=== PATIENT | female | born 1955 | race Caucasian/White ===

== ENCOUNTER 2017-03-21 19:30 | Outpatient (CLI) | payer OTHER | END 2017-03-21 19:31 | disposition home or self-care (01) | LOC: SLEEPLAB 19:30 | PROVIDERS: ATTEND Internal Medicine Critical Care Medicine | DX: G47.33 Obstructive sleep apnea (adult) (pediatric) (principal); E66.9 Obesity, unspecified | CPT/HCPCS: 95811 ==

== ENCOUNTER 2017-05-13 01:23 | Outpatient (CLI) | payer OTHER | END 2017-05-13 01:24 | disposition home or self-care (01) | LOC: BICRAD 01:23 | DX: M25.542 Pain in joints of left hand (principal); M25.541 Pain in joints of right hand ==

== ENCOUNTER 2018-03-17 08:28 | Outpatient (CLI) | payer OTHER ==
--- NOTE | 2018-03-17 10:35 | ULT ---
COMPLETE ABDOMINAL ULTRASOUND: History: Mid abdominal pain. Comparison: Exam is compared to prior 01-13-05, as well as comparison ultrasound 09-28-14. FINDINGS: There is diffuse increased echogenicity consistent with fatty infiltration but appears much less prom inent than on the comparison examinations. Common bile duct remains enlarged, up to 1.08 cm. The gall bladder is surgically absent. Spleen measures 11.4 cm. Visualized pancreas is unremarkable. Aorta and IVC are unremarkable. The right kidney measures 10.3 x 4.8 x 4.4 cm. Left kidney measures 10.9 x 5.7 x 5.1 cm. IMPRESSION: 1. Interval improvement in the degree of fatty infiltration when compared to prior in 2014. 2. Cholecystectomy. POS: KENDAL
== END 2018-03-17 08:29 | disposition home or self-care (01) ==
LOC: BICULT 08:28
PROVIDERS: ATTEND Family Medicine
DX: R10.84 Generalized abdominal pain (principal); K76.0 Fatty (change of) liver, not elsewhere classified; Z90.49 Acquired absence of other specified parts of digestive tract
CPT/HCPCS: 76700

== ENCOUNTER 2018-09-08 14:18 | Outpatient (CLI) | payer OTHER ==
--- NOTE | 2018-09-08 15:36 | MMO ---
Bilateral MAMMO Bilat Diag [facility]. CLINICAL HISTORY: Patient is 62 years old and is seen for diagnostic exam,bloody discharge in the left breast and pain in the sub-areolar region of the left breast. The patient has no family history of breast cancer. The patient has a history of other cancer. VIEWS: The views performed were: bilateral craniocaudal with tomosynthesis; bilateral mediolateral oblique with tomosynthesis; and bilateral mediolateral. FILMS COMPARED: The present examination has been compared to prior imaging studies performed at [facility] on 11/20/2009, 02/25/2011, 03/06/2011, 10/07/2011, 05/04/2012, 07/29/2013, 08/15/2014, 04/08/2016 and 09/08/2018. MAMMOGRAM FINDINGS: The breasts are heterogeneously dense, which could obscure a lesion on mammography. There are benign appearing calcifications seen in both breasts. There are no suspicious masses, suspicious calcifications, or new areas of architectural distortion. IMPRESSION: THERE IS NO MAMMOGRAPHIC EVIDENCE OF MALIGNANCY. A ROUTINE FOLLOW-UP MAMMOGRAM IN 1 YEAR IS RECOMMENDED. THE RESULTS OF THIS EXAM WERE SENT TO THE PATIENT. ACR BI-RADS Category 2 - Benign finding MAMMOGRAPHY NOTE: 1. A negative mammogram report should not delay a biopsy if a dominant of clinically suspicious mass is present. 2. Approximately 10% to 15% of breast cancers are not detected by mammography. 3. Adenosis and dense breasts may obscure an underlying neoplasm.
--- NOTE | 2018-09-08 15:43 | ULT ---
LEFT BREAST ULTRASOUND: HISTORY: Bloody nipple discharge per the patient and ordering clinician. COMPARISON: 09/08/2018, 04/08/2016. TECHNIQUE: Multiplanar, painter scale, and color Doppler images were obtained in a targeted ultrasound of the subar eolar region of the left breast. FINDINGS: Normal-appearing breast parenchyma is seen. No mass is seen. No ductal dilatation is seen. No susp icious shadowing is present. At the time of ultrasound, an examination was performed. The patient was able to express discharge f rom the left breast. This discharge was dark brown and nonbloody in colon at the time of the examina tion. IMPRESSION: BIRADS category 2 - benign findings. Annual screening mammography is recommended. POS: KENDAL
== END 2018-09-08 14:19 | disposition home or self-care (01) ==
LOC: BICMAMMO 14:18
PROVIDERS: ATTEND Student in an Organized Health Care Education/Training Program
DX: N64.52 Nipple discharge (principal); Z85.89 Personal history of malignant neoplasm of other organs and systems
CPT/HCPCS: 77066; G0279

== ENCOUNTER 2020-10-24 08:51 | Outpatient (CLI) | payer MEDICARE, OTHER | END 2020-10-24 08:52 | disposition home or self-care (01) | LOC: BICMAMMO 08:51 | PROVIDERS: ATTEND Student in an Organized Health Care Education/Training Program | DX: Z12.31 Encounter for screening mammogram for malignant neoplasm of breast (principal); Z85.89 Personal history of malignant neoplasm of other organs and systems | CPT/HCPCS: 77063; 77067 ==

== ENCOUNTER 2022-10-02 09:07 | Outpatient (CLI) | payer MEDICARE, OTHER | END 2022-10-02 09:08 | disposition home or self-care (01) | LOC: TBSIIMAG 09:07 | PROVIDERS: ATTEND Neurological Surgery | DX: M47.22 Other spondylosis with radiculopathy, cervical region (principal); Z98.890 Other specified postprocedural states | CPT/HCPCS: 72040 ==

== ENCOUNTER 2023-01-26 11:21 | Outpatient (CLI) | payer MEDICARE, OTHER | END 2023-01-26 11:22 | disposition home or self-care (01) | LOC: BICMAMMO 11:21 | PROVIDERS: ATTEND Student in an Organized Health Care Education/Training Program | DX: Z12.31 Encounter for screening mammogram for malignant neoplasm of breast (principal) | CPT/HCPCS: 77063; 77067 ==